=== PATIENT | male | born 1935 | race Caucasian/White ===

== ENCOUNTER 2019-11-23 17:58 | Emergency (ER) | payer MEDICARE, OTHER ==
[2019-11-23] MEDS ORDERED: IV RINGERS SOLUTION,LACTATED 1,000 ML IV SCH (18:01)
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
[2019-11-23 18:48] LABS: BASO % 1 % (0-3); EOS # 0.1 x10^3/uL (0.0-0.7); EOS % 1 % (0-3); HEMOGLOBIN 10.4 g/dL (13.0-17.5); LYMPH # 0.9 x10^3/uL (1.0-4.8); LYMPH % 13 % (24-48); MEAN CORPUSCULAR HEMOGLOBIN 34 pg (25-35); MEAN CORPUSCULAR HGB CONC 35 g/dL (31-37); MEAN CORPUSCULAR VOLUME 98 fL (79-100); MONO # 0.9 x10^3/uL (0.0-1.1); MONO % 12 % (0-9); NEUT # 5.3 x10^3uL (1.8-7.7); NEUT % 73 % (31-73); PLATELET COUNT 164 x10^3/uL (140-400); RED BLOOD COUNT 3.05 x10^6/uL (4.30-5.70); RED CELL DISTRIBUTION WIDTH 15.3 % (11.5-14.5); WHITE BLOOD COUNT 7.2 x10^3/uL (4.0-11.0)
[2019-11-23 19:00] VITALS: BP 158/82
[2019-11-23 19:06] LABS: CALCIUM 9.8 mg/dL (8.5-10.1); CREATININE 2.1 mg/dL (0.7-1.3); GFR 30.2; POTASSIUM 4.9 mmol/L (3.5-5.1)
--- NOTE | 2019-11-23 19:08 | RAD ---
EXAM: CT HEAD WITHOUT CONTRAST. HISTORY: Altered mental status. TECHNIQUE: Computed tomography of the head was performed without intravenous contrast. One or more of the following individualized dose reduction techniques were utilized for this examination: 1. Automated exposure control. 2. Adjustment of the mA and/or kV according to patient size. 3. Use of iterative reconstruction technique. COMPARISON: None. FINDINGS: There is no intracranial hemorrhage. Hypoattenuation within the periventricular white matter indicates mild chronic microangiopathic change. Prominence of the lateral ventricles and hemispheric sulci indicates moderate atrophy. The visualized paranasal sinuses appear clear. There are changes of bilateral cataract surgery. The temporal bones are unremarkable. The calvarium reveals no suspicious lesions. There are atherosclerotic calcifications of the internal carotid and vertebral arteries. IMPRESSION: 1. No acute intracranial findings. 2. Moderate atrophy and mild chronic microangiopathic white matter change. Electronically signed by: Karl Mahoney MD (11/23/2019 7:05 PM) [facility]
--- NOTE | 2019-11-23 19:08 | RAD ---
EXAM: CHEST ONE VIEW. HISTORY: Dyspnea, altered mental status. COMPARISON: None. FINDINGS: A frontal view of the chest is obtained. A left-sided pacemaker has its leads in the right atrium and right ventricle. There are changes of coronary artery bypass grafting. There are no confluent infiltrates. There is no pneumothorax or pleural effusion. The heart is mildly enlarged. IMPRESSION: 1. Mild cardiomegaly. Electronically signed by: Karl Mahoney MD (11/23/2019 7:05 PM) [facility]
[2019-11-23 19:22] LABS: BARBITURATES NEG (NEG); BENZODIAZEPINES NEG (NEG); CANNABINOIDS NEG (NEG); COCAINE NEG (NEG); METHADONE NEG (NEG); OPIATES NEG (NEG); PHENCYCLIDINE NEG (NEG)
[2019-11-23 19:23] LABS: AMPHETAMINE/METHAMPHETAMINE NEG (NEG)
[2019-11-23 19:27] LABS: BACTERIA,URINE 0 /HPF (0-FEW); BILIRUBIN,URINE NEG (NEG); CLARITY,URINE HAZY; COLOR,URINE YELLOW; GLUCOSE,URINE NEG (NEG); GRANULAR CASTS,URINE OCC /HPF; HYALINE CASTS, URINE OCC /HPF; NITRITE,URINE NEG (NEG); RBC,URINE OCC /HPF (0-2); SQUAMOUS EPITHELIAL CELL,UR OCC /LPF; UROBILINOGEN,URINE 0.2 mg/dL (0.2 mg/dL)
[2019-11-23 19:30] LABS: ALBUMIN 3.8 g/dL (3.4-5.0); DIRECT BILIRUBIN 0.1 mg/dL (0.0-0.2); TOTAL BILIRUBIN 0.3 mg/dL (0.2-1.0); TOTAL PROTEIN 6.7 g/dL (6.4-8.2)
[2019-11-23 20:04] LABS: SEDIMENTATION RATE 53 (0-15)
--- NOTE | 2019-11-23 22:27 | EKG ---
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
[2019-11-23] MEDS ORDERED: DIVA250T PO (22:39)
[2019-11-23] MEDS ORDERED: DIVALPROEX SODIUM 125 MG TABLET.DR. PO ONE ×2 (22:40→23:00)
[2019-11-23] MEDS ORDERED: LORazepam 1 MG TABLET PO ONE ×2 (23:00)
[2019-11-24] MEDS ORDERED: DIVALPROEX ER 250 MG TAB.ER.24H. PO SCH (09:00)
== END 2019-11-23 23:15 | disposition home or self-care (01) ==
LOC: ER 17:58
DX: R41.82 Altered mental status, unspecified (principal); D64.9 Anemia, unspecified; F41.9 Anxiety disorder, unspecified; M19.90 Unspecified osteoarthritis, unspecified site; I25.810 Atherosclerosis of coronary artery bypass graft(s) without angina pectoris; F03.90 Unspecified dementia, unspecified severity, without behavioral disturbance, psychotic disturbance, mood disturbance, and anxiety; E78.00 Pure hypercholesterolemia, unspecified; E11.22 Type 2 diabetes mellitus with diabetic chronic kidney disease; I13.0 Hypertensive heart and chronic kidney disease with heart failure and stage 1 through stage 4 chronic kidney disease, or unspecified chronic kidney disease; I50.9 Heart failure, unspecified; N18.9 Chronic kidney disease, unspecified; G47.33 Obstructive sleep apnea (adult) (pediatric); G20 Parkinson's disease; Z95.0 Presence of cardiac pacemaker
CPT/HCPCS: 36415; 70450; 71045; 80048; 80076; 80307; 81001; 82550; 83880; 84443; 84484; 85025; 85610; 85651; 85730; 86592; 93005; 99285-25